=== PATIENT | female | born 1975 | race Native Hawaiian/Other Pacific Islander ===

== ENCOUNTER 2016-05-31 05:34 | Outpatient (CLI) | payer OTHER ==
[2016-05-31 17:50] VITALS: BP 146/88; TEMP 98.4
== END 2016-05-31 20:58 | disposition home or self-care (01) ==
LOC: INF 05:34
DX: E11.40 Type 2 diabetes mellitus with diabetic neuropathy, unspecified (principal)
CPT/HCPCS: 96365; J0712

== ENCOUNTER 2016-06-01 05:34 | Outpatient (CLI) | payer OTHER | END 2016-06-01 19:04 | disposition home or self-care (01) | LOC: INF 05:34 | DX: E11.40 Type 2 diabetes mellitus with diabetic neuropathy, unspecified (principal) | CPT/HCPCS: 96365; 96366; J0712 ==

== ENCOUNTER 2016-06-02 05:23 | Outpatient (CLI) | payer OTHER ==
[2016-06-02 17:40] VITALS: BP 136/80; TEMP 98.4
== END 2016-06-02 22:07 | disposition home or self-care (01) ==
LOC: INF 05:23
DX: E11.40 Type 2 diabetes mellitus with diabetic neuropathy, unspecified (principal)
CPT/HCPCS: 96365; 96366; J0712

== ENCOUNTER 2016-06-03 05:33 | Outpatient (CLI) | payer OTHER | END 2016-06-03 22:56 | disposition home or self-care (01) | LOC: INF 05:33 | DX: E11.40 Type 2 diabetes mellitus with diabetic neuropathy, unspecified (principal) | CPT/HCPCS: 96365; 96366; J0712 ==

== ENCOUNTER 2016-06-05 05:20 | Outpatient (CLI) | payer OTHER | END 2016-06-05 19:09 | disposition home or self-care (01) | LOC: INF 05:20 | DX: E11.40 Type 2 diabetes mellitus with diabetic neuropathy, unspecified (principal) | CPT/HCPCS: 96365; J0712 ==

== ENCOUNTER 2016-06-06 05:30 | Outpatient (CLI) | payer OTHER ==
[2016-06-06 17:45] VITALS: BP 134/74; TEMP 98
== END 2016-06-06 18:32 | disposition home or self-care (01) ==
LOC: INF 05:30
DX: E11.40 Type 2 diabetes mellitus with diabetic neuropathy, unspecified (principal)
CPT/HCPCS: 96365; 96366; J0712

== ENCOUNTER 2018-01-04 12:19 | Outpatient (CLI) | payer OTHER ==
[2018-01-04 12:48] LABS: PLATELET COUNT 394 K/uL (152-353)
[2018-01-04 13:07] LABS: POTASSIUM 4.5 mmol/L (3.6-5.2)
== END 2018-01-04 21:42 | disposition home or self-care (01) ==
LOC: LAB 12:19
PROVIDERS: Podiatrist Foot & Ankle Surgery
DX: L02.611 Cutaneous abscess of right foot (principal); I10 Essential (primary) hypertension; N18.3 Chronic kidney disease, stage 3 (moderate); E11.9 Type 2 diabetes mellitus without complications
CPT/HCPCS: 80053; 85027; 86140

== ENCOUNTER 2018-01-05 17:32 | Outpatient (CLI) | payer OTHER | END 2018-01-05 22:10 | disposition home or self-care (01) | LOC: LAB 17:32 | DX: R60.0 Localized edema (principal) | CPT/HCPCS: 83880 ==

== ENCOUNTER 2018-01-11 11:23 | Outpatient (CLI) | payer OTHER ==
[2018-01-11 12:51] LABS: POTASSIUM 4.6 mmol/L (3.6-5.2)
[2018-01-11 12:59] LABS: PLATELET COUNT 353 K/uL (152-353)
== END 2018-01-11 20:41 | disposition home or self-care (01) ==
LOC: LAB 11:23
PROVIDERS: Podiatrist Foot & Ankle Surgery
DX: L02.611 Cutaneous abscess of right foot (principal); I10 Essential (primary) hypertension; N18.3 Chronic kidney disease, stage 3 (moderate); E11.9 Type 2 diabetes mellitus without complications
CPT/HCPCS: 80053; 85027; 86140

== ENCOUNTER 2018-01-19 12:30 | Outpatient (CLI) | payer OTHER ==
[2018-01-19 12:42] LABS: PLATELET COUNT 407 K/uL (152-353)
[2018-01-19 17:26] LABS: POTASSIUM 4.8 mmol/L (3.6-5.2)
== END 2018-01-19 23:33 | disposition home or self-care (01) ==
LOC: LAB 12:30
PROVIDERS: Podiatrist Foot & Ankle Surgery
DX: L03.115 Cellulitis of right lower limb (principal); B95.61 Methicillin susceptible Staphylococcus aureus infection as the cause of diseases classified elsewhere
CPT/HCPCS: 80053; 85027; 86140

== ENCOUNTER 2020-03-02 13:19 | Emergency (ER) | payer OTHER ==
[~2020-03-02] VITALS: Ht 172.7 cm; Wt 107.0 kg
[2020-03-02 13:28] VITALS: TEMP 98.9
[2020-03-02 14:38] LABS: PARTIAL THROMBOPLASTIN TIME 24.6 SECONDS (24.5-33.6)
[2020-03-02 15:54] VITALS: BP 109/86
== END 2020-03-02 15:54 | disposition home or self-care (01) ==
LOC: ED 13:19
PROVIDERS: Family Medicine
DX: R53.83 Other fatigue (principal); E86.0 Dehydration; E11.621 Type 2 diabetes mellitus with foot ulcer; Z79.4 Long term (current) use of insulin
CPT/HCPCS: 83880; 84484; 85610; 85730; 93005; 99283

== ENCOUNTER 2020-12-11 08:55 | Inpatient (IN) | payer OTHER ==
[~2020-12-11] VITALS: Ht 172.7 cm; Wt 111.6 kg
--- NOTE | 2020-12-11 11:10 | NUR ---
RESPIRATORY AT BEDSIDE
[2020-12-11 11:54] LABS: PLATELET COUNT 221 K/uL (152-353)
[2020-12-11 12:20] LABS: POTASSIUM 3.7 mmol/L (3.6-5.2)
--- NOTE | 2020-12-11 15:15 | NUR ---
PT AT BEDSIDE PERFORMING CPT. RIGHT LUNG @ 94%; LEFT LUNG @ 97%
[2020-12-11 16:42] VITALS: BP 96/63; TEMP 99.2
[2020-12-11 16:55] VITALS: BP 11/68; TEMP 99.6; Ht 172.7 cm; Wt 111.6 kg
[2020-12-11] MEDS ORDERED: CARV6.25 PO (17:59)
[2020-12-11] MEDS ORDERED: ZITHROMAX500 MG PO (18:01)
[2020-12-11] MEDS ORDERED: FAMOTIDINE40 MG PO (18:02)
[2020-12-11] MEDS ORDERED: CRESTOR5 MG PO (18:03)
[2020-12-11] MEDS ORDERED: HYDROCHLOROT12.5 M1 PO (18:04)
[2020-12-11] MEDS ORDERED: CLOP75TA2 PO (18:05)
[2020-12-11] MEDS ORDERED: PANTOPRAZOLE 40MG TA PO (18:05)
[2020-12-11] MEDS ORDERED: GABA300C2 PO (18:06)
[2020-12-11] MEDS ORDERED: [UNRECOGNIZED DRUG - OTHER] PO (18:07)
[2020-12-11] MEDS ORDERED: OZEMPIC2 MG/1.5 M SC (18:09)
[2020-12-11] MEDS ORDERED: LOSARTAN PO (18:15)
[2020-12-11] MEDS ORDERED: HUMALOG (18:17)
[2020-12-11 18:27] VITALS: BP 115/70; TEMP 99
[2020-12-11 20:00] VITALS: BP 110/77; TEMP 98.5
[2020-12-12] VITALS: BP 90/61; TEMP 98.5
--- NOTE | 2020-12-12 00:11 | NUR ---
WHILE GETTING 0000 VITALS, PT'S VITALS WERE FOLLOWS: HR:95, R-17, BP-90/61 AND 02 SAT WAS 53% AND PT. DID NOT HAVE NC ON AND IN NARES. REINFORCING BAR SETTER PUT NC ON AND PT. GOT UP TO 85% ON [address] MCLAUGHLIN AND RECEIVED THE FOLLOWING ORDERS: DEXAMETHASONE 6MG IVP Q8H, PULMICORT FLEXHALER BID, CHANGE TO HIGH FLOW OXYGEN DEVICE AND NOTIFY RT TO DO A ABG. PT'S IS SATTING 97% ON 40% AT 50L HIGH FLOW. WILL CONTINUE TO MONITOR.
--- NOTE | 2020-12-12 00:31 | NUR ---
PLACED PT ON HFNC @ 65% FIO2 AND 40 L/M. SPO2 94%, HR 98. WILL CONT. TO MONITOR PT.
--- NOTE | 2020-12-12 01:12 | NUR ---
NOTIFIED DR. MCLAUGHLIN OF ANXIOUS BEHAVIOR EXHIBITED BY PT. AFTER BEING PUT ON HIGH-FLOW. PHYSICIAN GAVE ORDER FOR ATIVAN 1MG IVP ONE TIME DOSE.
--- NOTE | 2020-12-12 01:26 | NUR ---
CHANGED FIO2 TO 50% AND LITER FLOW @ 40 L/M. SPO2 93%, HR 98
[2020-12-12 04:00] VITALS: BP 140/99; TEMP 98.2
--- NOTE | 2020-12-12 06:22 | NUR ---
INCREASED FIO2 TO 80% FIO2 DUE TO SPO2 DECREASING TO 87%, SPO2 INCREASED TO 93-94% AFTER INCRASE TO 80% FIO2. LITER FLOW 40 L/M
[2020-12-12 07:17] LABS: PLATELET COUNT 215 K/uL (152-353)
[2020-12-12 07:26] LABS: POTASSIUM 3.9 mmol/L (3.6-5.2)
[2020-12-12 08:00] VITALS: BP 157/94; TEMP 98.1
--- NOTE | 2020-12-12 08:33 | NUR ---
RESP AT BS AT THIS TIME. HF DECREASED TO 73% PER TYSON LOUIS RT. PT ALSO AT BS AT THIS TIME PERFPRMING CPT PER MD ORDERS( JAIME AND NICK). PT TOELRATING WNL.
--- NOTE | 2020-12-12 08:40 | NUR ---
PT TOLD RT "I DO NOT LIKE THAT VEST."
--- NOTE | 2020-12-12 10:56 | NUR ---
AVI FROM RESP AT BS TO DECREASE HIGH FLOW DOWN TO 51% PER DR HEARD REQUEST. PT LYING QUIETLY IN BED NO ACUTE DISTRESS NOTED. WILL CON'T TO MONITOR.
--- NOTE | 2020-12-12 10:59 | NUR ---
FIO2 DECREASED TO 50% PER DR MCLAUGHLIN.
--- NOTE | 2020-12-12 11:01 | NUR ---
CALLED DR MCLAUGHLIN'S OFFICE AND SPOKE TO JENNY CONCERNING ANY NOTES FROM DR BARNES R/T WOUND TO RT FOOT. WAS INFORMED THE OFFICE DIDNT HAVE ANY NOTED FROM PATRICIA BARNES ON PT'S CHART BUT JENNY FROM [facility] WILL CALL AND ATTEMPT TO GET WOUND CARE ORDERS. [id number] JENNY AT [facility] CALLED ME AND INFORMED ME SHE CALLED DR BARNES'S OFFCIE AND NURSE TOOK A MESSAGE AND INFORMED HER SOMEONE WOULD RETURN THE CALL AT THE END OF THE BUSSINESS DAY. WILL INFORM DR MCLAUGHLIN AND AWAIT FOR FURTHER ORDERS.
--- NOTE | 2020-12-12 11:20 | NUR ---
JENNY FROM [facility] CALLED AND STATED THAT NURSE FROM DR BARNES'S OFFICE RETUNRED CALL AND STATED THAT SHE WOULD HAVE TO GET ORDERS FROM MD AND WOULD CALL US BACK
--- NOTE | 2020-12-12 11:22 | NUR ---
PT'S CALLED AND REQUESTED TO SPEAK TO NURSE FOR UPDATE. ON PHONE GIVING UPDATE AT THIS TIME,
[2020-12-12 11:30] VITALS: BP 154/98; TEMP 98
--- NOTE | 2020-12-12 12:30 | NUR ---
ORDERS REC'D FROM DR BARNES'S OFFICE FROM JENNY AT DR MCLAUGHLIN'S OFFCIE AT THIS TIME. BENITO IN PURCHASING GIVEN WOUND DRESSING INFORM AND WAITING FURTHER ORDERS AFTER INFORMING
[2020-12-12 16:00] VITALS: BP 175/92; TEMP 97.8
--- NOTE | 2020-12-12 16:00 | NUR ---
DR MCLAUGHLIN CALLED AND ASKED IF WE COULD RESTART HOME BP MEDS AT THIS TIME. PT'S BP MANUALLY 162/90. LEFT MESSAGE AND AWAITING DR MCLAUGHLIN TO CALL BACK WITH FURTHER ORDERS
--- NOTE | 2020-12-12 17:11 | NUR ---
ON PHONE VERY UPSET AT THIS TIME DUE TO PT "NOT RECEIVING HER HOME MEDS". I ATTEMPTED TO EXPLAIN TO HIM THAT I HAD JUST SPOKEN TO DR MCLAUGHLIN CONCERNING PT'S HOME MEDS AND I REC'D ORDERS TO RESTART THE ONES THE MD WANTED TO RESTART. PT'S STATED " THIS PROCESS IS GOING TO KILL SOMEONE RIGHT?" I EXPLAINED TO HIM THAT WE FIRST HAVE TO HAVE AN ORDER FROM THE MD BEFORE WE CAN RESTART HOME MEDS. REMAINED UPSET. [facility] PT AND DR LARSEN
--- NOTE | 2020-12-12 18:20 | NUR ---
DR MCLAUGHLIN HERE IN ROUND MAKING ROUNDS AT THIS TIME IN ROOM WITH PT. PT AWAKE EATING SUPPER. UPON ENTERING ROOM PT NOTED IN UPRIGHT POISITION IN BED EATING SUPPER WITH HF OUT OF NOSE AT THIS TIME. HIGH FLOW PLACED BACK IN PT'S NOSE PER MD. PT STATED SHE COULDNT EAT WITH HF IN HER NOSE AND DR MCLAUGHLIN EXPLAINED SHE HAD TO TRY. HF LET IN PLACE AT THIS TIME. DRESSING TO RT FOOT (PT HAS HAD PARTIAL AMPUTATION .. ALL DIGITS AMPUTATED . PT HAS A SMALL WOUND NOTED TO BOTTOM OF RT FOOT. WOUND MEASURED AND IS FOLLOWS: 1CM X 0.4CM X 0.8CM. WOUND BED NOTED TO BE JOSELYN, NO DRAINAGE NOTED, NO ODOR NOTED. WOUND CLEANED WITH NS AND OPTIFORM AG NON ADHESIVE DRESSING CUT TO FIT CENTER PER MD ORDERS AND WRAPPED WITH LOLY AND TAPED. NON SLIP SOCK PLACED ON PT OVER DRESSING. PT TOELRATED WELL
[2020-12-12 20:00] VITALS: BP 158/86; TEMP 98.3
--- NOTE | 2020-12-12 20:05 | NUR ---
AWAKE SITTING UP ON SIDE OF BED TALKING ON PHONE WITH NO ACUTE DISTRESS NOTED, HIGH FLOW NC IN USE, DENIES ANY NEEDS AT THIS TIME, IV INTACT WITH FLUID ONGOING, TELEMETRY IN USE WITH REGULAR RATE, ENCOURAGED TO CALL NEEDED, RAILS UP, BED IN LOW POSITION, CALL LIGHT IN REACH.
--- NOTE | 2020-12-12 20:25 | NUR ---
KAREN RT, DECREASED HIGH FLOW FIO2 TO 72%, 40LPM. PATIENT DENIES ANY SHORTNESS OF BREATH AT THIS TIME.
--- NOTE | 2020-12-12 20:41 | NUR ---
PT ON 100% FIO2 AT 40LPM ON HFNC. SPO2 AT 99%. PT WEANED TO 70% AT 40LPM. SPO2 NOW AT 98%. WILL CONTINUE TO WEAN TOLERATED BY PT. NO INCREASED WOB OR SOB AT THIS TIME.
--- NOTE | 2020-12-12 22:35 | NUR ---
PT FOUND AWAKE WITH NO ACUTE DISTRESS NOTED, DENIES ANY PROBLEMS OR NEEDS AT THIS TIME, GAVE NIGHTLY MEDICATIONS WITH NO PROBLEMS, IV SITE INTACT WITH NS ONGOING, RESP RATE NONLABORED WITH HIGH FLOW NC IN USE, ENCOURAGED TO CALL NEEDED, RAILS UP, BED IN LOW POSITION, CALL LIGHT IN REACH. REMAINS ON ISOLATION FOR COVID.
--- NOTE | 2020-12-13 00:23 | NUR ---
PT SPO2 IS 99-98% ON 70% FIO2 AT 40LPM HFNC. RT DECREASED FIO2 TO 50%. PT SPO2 HOLDING AT 97-98%. WILL CONTINUE TO MONITOR AND WEAN TOLERATED.
[2020-12-13 00:25] VITALS: BP 144/71; TEMP 98.2
--- NOTE | 2020-12-13 01:00 | NUR ---
RESTING IN POSITION OF COMFORT ON L SIDE WITH EYES CLOSED, NO S/S OF PAIN OR DISTRESS NOTED, RESP RATE NONLABORED, ON HIGH FLOW NC WITH FIO2 OF 50%, IV SITES INTACT WITH FLUID ONGOING AT 125ML/HR, TELEMETRY IN USE, WILL MONITOR CLOSELY, RAILS UP, BED IN LOW POSITION, CALL LIGHT IN REACH.
--- NOTE | 2020-12-13 03:30 | NUR ---
RESTING IN BED WITH EYES CLOSED IN POSITION OF COMFORT, NO S/S OF PAIN OR DISTRESS NOTED, RESP RATE NONLABORED ON HIGH FLOW NC WITH FIO2 OF 50%, BOTH IV SITES INTACT WITH NS INFUSING AT 125ML/HR, TELEMETRY IN USE, WILL MONITOR CLOSELY, RAILS UP, BED IN LOW POSITION, CALL LIGHT IN REACH.
[2020-12-13 04:00] VITALS: BP 177/81; TEMP 97.6
--- NOTE | 2020-12-13 05:20 | NUR ---
AWAKE LAYING IN BED WITH NO S/S OF DISTRESS NOTED, DENIES ANY NEEDS AT THIS TIME, RESP RATE NONLABORED, O2 IN USE VIA HFNC, BOTH IV SITES INTACT AND NS INFUSING AT 125ML/HR, TELEMETRY IN USE, PT STATES SHE HAS NOT SLEPT REALLY ANY TONIGHT. ENCOURAGED TO CALL NEEDED, RAILS UP, BED IN LOW POSITION, CALL LIGHT IN REACH.
[2020-12-13 05:38] LABS: PLATELET COUNT 229 K/uL (152-353)
--- NOTE | 2020-12-13 06:00 | NUR ---
REMAINS ON HIGH FLOW NC WITH FIO2 OF 50% AT 40 LPM, O2 SAT 94%.
[2020-12-13 06:05] LABS: POTASSIUM 3.8 mmol/L (3.6-5.2)
--- NOTE | 2020-12-13 08:51 | NUR ---
CALLED DR MCLAUGHLIN AND REPORTED AM LABS. ALSO INFOMRED THAT PRIOR WHEN RESP IN ROOM AT EXPLAINED TO PT SHE HAD TO SIT UP IN CHAIR TODAY AND THEIMPORTANCE OF MOVING PT GOT UPSET AND STARTED CRYING. PT STATED "I JUST WANT TO SLEEP AND I CANT HERE BECAUSE YOU GUYS KEEP WAKING ME UP AND I CANT REST HERE". EXP,AINED TO PT AGAIN THE IMPORTANCE OF FREQ MOVEMENT AND DISSEASE PROCESS OF THICK MUCOUS WHICH RESULTS FROM COVID. PT STATED TO ME "I SIT UP ON SIDE OF BED TO EAT AND GET UP AND WALK TO BR SO THAT IS ENOUGH OF MOVEMENT". NEW ORDERS RECD TO STOP IVF'S LONG PT IS DRINKING, DC STEROIDS AND DC CXR. IMFORMED THAT RR ATTEMPTING TO WEAN PT OFF HIGH FLOW TO NC. PT PALCED ON NC AT 5L PER ELIZA FROM RESP. DR MCLAUGHLIN DOES NOT WANT PT ANY MORE THAN 3L OF NC. WILL INFORM RESP. WILL MONITOR PT ON NC
[2020-12-13 09:00] VITALS: BP 159/85; TEMP 97.8
--- NOTE | 2020-12-13 09:00 | NUR ---
DR MCLAUGHLIN INFORMED OF PT'S WEIGHT FROM THIS AM AND GAVE HER PT'S ADMISSION WEIGHT WELL
--- NOTE | 2020-12-13 10:22 | NUR ---
REC'D CALL FROM PT'S , SHANTHI ANGELO, UPDATE GIVEN AT THIS TIME. ALL QUESTIONS ANSWERED AT THIS TIME. SHANTHI REPORTS HE IS UP FRONT AND HAS SOME THINGS FOR THE PT THAT SHE CALLED AND REQUESTED IF SOMEONE COULD COME GET THEM. INFORMED HIM SOMEONE WOULD COME UPFRONT AND PICK THE BAG UP. PT'S BAG BROUGHT TO FRONT OF [facility] AT THIS TIME.
--- NOTE | 2020-12-13 10:45 | NUR ---
MJ, RT AT PT'S BEDSIDE. PT NOTED TO BE AWAKE AND COUGHING USING IS. PT IS CURRENTLY ON THE PHONE WITH HER CRYING. INFORMED PT OF MD ORDERS FOR PLACING HER BACK ON HIGH FLOW. PT CON'T TO GET UPSET ABOUT BEING PLACED BACK ON HIGH FLOW. PT EDUATED BY MJ AND MYSELF. PT O2 SATS CHECKED AT THIS TIME WHILE ON 5LPM NC. PT'S O2 SATS NOTED TO BE 94-95%. MJ DECREASED PT TO 3LPM. PT MONITORED FOR 3-5 MINUTES PT MAINTED O2 SATS FROM 90-94% ON 3LPM NC. PT QUESTIONS WHY SHE DOES NOT HEAR ANYONE ELSE GETTING THE CPT. PT EDUCATED THAT HER PHYSICIAN DR. MCLAUGHLIN ORDERED THIS FOR HER TO HELP BREAK UP THE MUCUS IN HER LUNGS. PT O2 SATS REMAIN AT 91%. MJ NOTIFIES DR. MCLAUGHLIN.
--- NOTE | 2020-12-13 11:10 | NUR ---
PER MJ, RT DR. MCLAUGHLIN SAYS PT CAN STAY ON NC 3LPM LONG HER O2 SATS REMAIN 90% OR ABOVE. PT CON'T TO BE UPSET WANTING TO GET A SHOWER. INFORMED PT THAT SINCE SHE IS NOW ON NC WE CAN GET HER IN THE SHOWER WITH A SHOWER CHAIR. WILL, PT HERE AT PT'S BEDSIDE TO PERFORM CPT.
--- NOTE | 2020-12-13 11:14 | NUR ---
called to assess pt. pt was on the phone at this time on 5 L/M NC. I TURNED HER DOWN TO 3 L/M SPO2 MAINTAINED AT 93% NO ACUTE DISTRESS. PHYSICAL THERAPY ENTERED THE ROOM FOR CPT. I SPOKE WITH DR MCLAUGHLIN LONG AT SHE MAINTAINS A SPO2 OF 90% WITH NO DISTRESS SHE SAID SHE IS FINE WITH THE NASAL CANNUAL HOWEVER IF SHE CAN'T SHE WOULD LIKE HER BACK ON THE THE HFNC. BUT PREFERS HER TO STAY ON THE NASAL CANNUAL IF POSSIBLE AND SPO2 CAN BE MAINTAIN AT 90% OR MORE.
--- NOTE | 2020-12-13 11:25 | NUR ---
WILL, PT REPORTS PT COUGHED UP A SIGNIFICANT AMOUNT OF MUC0US, O2 SATS 94-95% AT THIS TIME.
[2020-12-13 12:00] VITALS: BP 171/83; TEMP 97.7
--- NOTE | 2020-12-13 13:40 | NUR ---
PT UP AMBULATING TO BR. PT REPORTS FEELING NAUSEATED. ZOFRAN 4MG IV GIVEN PER MD ORDERS FOR PT'S NAUSEA.
--- NOTE | 2020-12-13 15:00 | NUR ---
ELIZA, RT AT PT'S BEDSIDE. REPORTS PT'S O2 SATS 98% ON 3LPM NC.
--- NOTE | 2020-12-13 15:05 | NUR ---
WILL PT IN AT PT'S BEDSIDE FOR CPT.
--- NOTE | 2020-12-13 15:11 | NUR ---
WILL, PT REPORTS PT REFUING CPT DUE TO BEING NAUSEATED. PT O2 SATS NOTED TO BE 98% ON 3LPM NC AT THIS TIME.
[2020-12-13 16:00] VITALS: BP 160/98; TEMP 97.8
--- NOTE | 2020-12-13 18:31 | NUR ---
i s/w pt this am to assess her dc palns and needs. She stated she lives at home with her and son. She denied any needs at present. I will fu with her after speaking with Dr. West about her DC care.
--- NOTE | 2020-12-13 19:30 | NUR ---
PT'S CALL LIGHT WENT OFF, BLUEBERRY GROWER RESPONDED TO ROOM. PT STATED THAT SHE IS COLD AND NEEDS ANOTHER BLANKET. WHILE IN THE ROOM PT STATES THAT HER IV IN THE RIGHT AC "FEELS LIKE IT IS GOING INTO THE MEAT" OF HER ARM. BLUEBERRY GROWER ASSESSED IV SITE AND NO ABNORMALITY IS NOTED. PT'S AIR TUBING CAME UNATTACHED FROM THE WALL, BLUEBERRY GROWER ASSESSED O2 THAT WAS MAINTAINING AT 96%. AIR LINE WAS REATTACHED AND PT STATED THAT SHE CAN FEEL THE AIR COMING THROUGH THE TUBE. PT SHOWS NO SIGNS OF DISTRESS AT THIS TIME AND DENIES ANY NEEDS.
[2020-12-13 20:00] VITALS: BP 146/72; TEMP 97.8
--- NOTE | 2020-12-13 20:00 | NUR ---
AWAKE WITH NO ACUTE DISTRESS NOTED, DENIES ANY NEEDS AT THIS TIME, TELEMETRY IN USE, O2 AT 3LPM VIA NC WITH SAT OF 96%, RESP RATE NONLABORED, STATES SHE IS FEELING BETTER TODAY, BOTH IV LOCK SITES INTACT, ENCOURAGED TO CALL NEEDED, RAILS UP, BED IN LOW POSITION, CALL LIGHT IN REACH.
--- NOTE | 2020-12-13 22:35 | NUR ---
PT LAYING IN POSITION OF COMFORT IN BED WITH NO S/S OF ACUTE DISTRESS OR PAIN NOTED, DENIES ANY PROBLEMS OR NEEDS AT THIS TIME, RESP RATE NONLABORED, IV SITES INTACT, O2 AT 3LPM VIA NC WITH SAT OF 92-93%, TELEMETRY IN USE, REMAINS ON ISOLATION FOR COVID, WILL MONITOR, ENCOURAGED TO CALL NEEDED PT ACKNOWLEDGES UNDERSTANDING, RAILS UP, BED IN LOW POSITION, CALL LIGHT IN REACH.
[2020-12-14] VITALS: BP 181/79; TEMP 97.8
--- NOTE | 2020-12-14 02:00 | NUR ---
RESTING IN BED IN POSITION OF COMFORT WITH EYES CLOSED, NO S/S OF PAIN OR DISTRESS NOTED, RESP RATE NONLABORED, O2 AT 3LPM VIA NC, IV SITES INTACT, TELEMETRY IN USE WITH REGULAR RATE, WILL MONITOR CLOSELY, RAILS UP, BED IN LOW POSITION, CALL LIGHT IN REACH.
[2020-12-14 04:00] VITALS: BP 185/90; TEMP 97.9
--- NOTE | 2020-12-14 04:14 | NUR ---
PT CALLED STEAMER TENDER LIGHT C/O NAUSEA AND IS GAGGING, GIVEN ZOFRAN 4MG SLOW IVP PRN. DENIES ANY OTHER PROBLEMS, O2 AT 3LPM VIA NC WITH SAT OF 91%, BOTH IV SITES INTACT, TELEMETRY IN USE. B/P SLIGHTLY ELEVATED BUT NOTE PT GAGGING AND ALSO PT GET B/P MEDS THIS MORNING. WILL MONITOR CLOSELY, RAILS UP, BED IN LOW POSITION,CALL LIGHT IN REACH.
--- NOTE | 2020-12-14 04:48 | NUR ---
PT STATES HER NAUSEA HAS DECREASED ALMOST COMPLETELY, NO VOMITING NOTED, STATES SHE IS FEELING BETTER SINCE PRN ZOFRAN. WILL MONITOR CLOSELY.
[2020-12-14 05:43] LABS: PLATELET COUNT 256 K/uL (152-353)
[2020-12-14 06:02] LABS: POTASSIUM 3.4 mmol/L (3.6-5.2)
--- NOTE | 2020-12-14 08:04 | NUR ---
RT ATTEMPTED TO WEAN FIO2 TO 28% AT 2LPM NC. PT SPO2 DROPPED TO 88-89%. RT LEFT PT ON 3LPM NC. WILL ATTEMPT TO WEAN PT AGAIN AT 1000.
--- NOTE | 2020-12-14 09:53 | NUR ---
RT TO ASSESS PT FOR WEANING FIO2. SPO2 STILL 90-91% ON 3LPM NC. PT STATES SHE WAS JUST SICK, VOMITING. NO WEANING AT THIS TIME. WILL CONTINUE TO MONITOR.
[2020-12-14 12:00] VITALS: BP 137/88; TEMP 97.9
[2020-12-14 16:00] VITALS: BP 157/65; TEMP 98.4
[2020-12-14 20:00] VITALS: BP 155/80; TEMP 99
--- NOTE | 2020-12-14 21:35 | NUR ---
PM MEDS GIVEN AT THIS TIME. PT. TOLERATED WELL. PULMICORT AND COMBIVENT INHALERS ALSO GIVEN AT THIS TIME. PT. SATTING 91% ON 5L/M NC AT THIS TIME. NO S/S OF ACUTE DISTRESS NOTED OR EXPRESSED BY PT.
--- NOTE | 2020-12-14 21:40 | NUR ---
EXECUTIVE KITCHEN MANAGER IN PT'S ROOM AT THIS TIME. PT. RESTING WITH SIDE RAILS UP TIMES TWO WITH BED IN LOWEST POSITION WITH CALL LIGHT WITHIN REACH. TELEMETRY, CONTINOUS PULSE OXIMETRY AND 5L/M NC INTACT. NO S/S OF ACUTE DISTRESS NOTED.
--- NOTE | 2020-12-14 21:40 | NUR ---
PM MEDS GIVEN AT THIS TIME ALONG WITH BENADRYL 50MG TO HELP INDUCE SLEEP. PT. TOLERATED WELL. NO PAIN NOTED OR EXPRESSED AT THIS TIME. 3.5 L/M NC INTACT AND PT IS SATTING 95% ON THAT. BLOOD SUGAR WAS 114. NO COVERAGE NEEDED. PT. IN A HIGH-FOWLERS POSITON WITH SIDE RAILS UP TIMES TWO WITH BED IN LOWEST POSITION WITH CALL LIGHT WITHIN REACH. TELEMETRY AND CONTINUOUS PULSE OXIMETRY INTACT AT THIS TIME. WILL MONITOR FOR ANY ACUTE CHANGES AT THIS TIME.
[2020-12-15] VITALS: BP 140/68; TEMP 98.1
[2020-12-15 04:00] VITALS: BP 166/88; TEMP 98.2
[2020-12-15 06:11] LABS: PLATELET COUNT 249 K/uL (152-353)
--- NOTE | 2020-12-15 06:38 | NUR ---
junior underwriter was helping x-ray tech get patient to the wheelchair. patient stated," i cant get any rest. my head is killing me and those bright lights will only make it worse." patient also stated, "come back later."
--- NOTE | 2020-12-15 06:40 | NUR ---
MANINDER TEJADA NOTIFIED ME THAT PT. REFUSED GETTING UP TO DO HER CXR THIS MORNING. WILL PASS ON IN REPORT.
[2020-12-15 06:55] LABS: POTASSIUM 3.4 mmol/L (3.6-5.2)
[2020-12-15 08:15] VITALS: BP 184/85; TEMP 98.1
[2020-12-15 11:55] VITALS: BP 144/82; TEMP 98
[2020-12-15 16:29] VITALS: BP 149/94; TEMP 97.9
--- NOTE | 2020-12-15 17:45 | NUR ---
1430 PROVIDED CHEST XRAY RESULTS TO DR. MCLAUGHLIN. RECEIVED NEW ORDERS TO CONTINUE REMDESIVIR TREATMENT X5 ADDITIONAL DAYS, NOTED AND CARRIED OUT. INFORMED PHYSICIAN PATIENT WAS PRONED AT 1240 WITH SPO2 OF 97-98% ON 2LPM OXYGEN VIA NC UNTIL 1420. ASSISTED PATIENT TO SHOWER AND LINENS CHANGED AT THIS TIME. ONCE OUT OF SHOWER, PATIENT REQUESTING TO RETURN TO BED. EDUCATED PATIENT ON IMPORTANCE OF AMBULATING, USE OF INSENTIVE SPIROMETER, AND INCREASING INTAKE. MANAGER ESTATE OFFERED TO OBTAIN FOOD/DRINK FROM OUTSIDE THE FACILITY, PT REFUSED AT THIS TIME. 1725 PATIENT REMAINS IN CHAIR AT BEDSIDE. PER PATIENT'S REQUEST, PROVIDED PT APPLE AND APPLESAUCE TO PATIENT. ADMINISTERED ZOFRAN 4MG VIA SIVP, PT TOLERATED WELL. PATIENT TOLERATED APPLE SAUCE WITHOUT DIFFICULTY. 1740 PATIENT SPEAKING WITH MOTHER ON PERSONAL CELL PHONE. PATIENT CONTINUES TO RECEIVE OXYGEN VIA NC @ 2LPM WITH SPO2 98%. 1755 ATTEMPTED TO DO DRESSING CHANGE TO RIGHT LOWER EXT, PT ADVISED DRESSING CHANGE IS ONLY TO BE DONE ONCE A WEEK. NOTIFIED OF SAME FOR CLARIFICATION AND PHYSICIAN CONFIRMED DRESSING CHANGE IS TO BE DONE EVERY THREE (3) DAYS.
--- NOTE | 2020-12-15 19:40 | NUR ---
RT AT BEDSIDE DOING CPT WITH SMARTVEST.
--- NOTE | 2020-12-15 19:50 | NUR ---
PT. SATTING 92% ON 3L/ M NC AT THIS TIME. NO S/S OF ACUTE DISTRESS NOTED AT THIS TIME. WILL CONTINUE TO MONITOR.
[2020-12-15 20:00] VITALS: BP 158/85; TEMP 98
--- NOTE | 2020-12-15 21:15 | NUR ---
PM MEDS GIVEN AT THIS TIME. PT. TOLERATED WELL. REGLAN 5 MG GIVEN AT THIS TIME FOR NAUSEA WELL. RT PERFORMED CPT WITH SMART VEST ON PT. PT TOLERATED WELL. PT. SATTING 93-94% AT THIS TIME. NO S/S OF ACUTE DISTRESS NOTED. PT'S BLOOD SUGAR WAS 196. PT. SELF ADMINISTERED INSULIN ALSO AT THIS TIME.
[2020-12-16] VITALS: BP 163/100; TEMP 98.6
--- NOTE | 2020-12-16 02:15 | NUR ---
PT. ASKED FOR A COKE. EDUCATED THAT PLAN REP COULD NOT PROVIDE THIS. PT. STATED "I REALIZE NOW WHY I HAVE A HEADACHE BECAUSE I NORMALLY DRINK CAFFEINE AT THIS TIME." PLAN REP PROVIDED PT. WITH A ALTERNATIVE DIET COKE.
[2020-12-16 04:00] VITALS: TEMP 98.3
[2020-12-16 06:14] LABS: PLATELET COUNT 257 K/uL (152-353)
[2020-12-16 06:42] LABS: POTASSIUM 3.6 mmol/L (3.6-5.2)
--- NOTE | 2020-12-16 07:15 | NUR ---
PARTIAL R FOOT AMPUTATION AREA STILL OPEN TO AIR AT THIS TIME. NEEDED CLARIFICATION ON WHEN LAST DRESSING CHANGE WAS DONE.
[2020-12-16 08:00] VITALS: BP 202/108; TEMP 98.1
--- NOTE | 2020-12-16 09:35 | NUR ---
PATIENT OXYGEN DECREASED TO 2LPM NC VIA NC, PATIENT TOLERATING WELL.
--- NOTE | 2020-12-16 09:50 | NUR ---
DRESSING APPLIED TO RIGHT FOOT PER PHYSICIAN ORDERS. PATIENT TOLERATED WELL, NO REDNESS OR DRAINAGE NOTED TO WOUND.
--- NOTE | 2020-12-16 10:30 | NUR ---
PROVIDED DR. MCLAUGHLIN RESULTS OF CHEST XRAY, RECEIVED VERBAL INSTRUCTIONS TO INCREASE AMBULATION, MOVEMENT AND PRONING TIME WITH PATIENT. ELIZA Cadena RN CHARGE NURSE INFORMED PHYSICIAN PATIENT IS REQUESTING TO REMAIN IN BED DESPITE EDUCATION BY STAFF AND MULTIPLE REQUESTS MADE BY CHARGE NURSE, MOTEL FRONT DESK CLERK AND PCT TO PATIENT TO AMBULATE TO BEDSIDE CHAIR.
--- NOTE | 2020-12-16 11:05 | NUR ---
IV TO LAC WITH 22G INSERTED, SITE FLUSHED WELL WITH NS 10ML AND GOOD BLOOD RETURN NOTED X1 STICK. PATIENT TOLERATED WELL.
[2020-12-16 12:12] VITALS: BP 133/94; TEMP 98
--- NOTE | 2020-12-16 12:15 | NUR ---
PATIENT AMBULATED TO BEDSIDE CHAIR WITHOUT DIFFICULTY. PATIENT HAS PRODUCTIVE COUGH WITH REMOVAL OF COPIOUS AMOUNTS OF THICK TANNED MUCOUS. DIGITAL CONTROLS TECHNICAL OFFICER PROVIDED CPT ON PATIENT. PATIENT DENIES ANY PAIN,NEEDS OR C/O AT THIS TIME. PATIENT USED INCENTIVE SPIROMETER AND PULLED UP TO 1750 WITH SMALL AMOUNT OF DIFFICULTY. PATIENT ENCOURAGED AND EDUCATED ON IMPORTANCE OF CONTINUOUS USE OF I.S., AMBULATING AND MOVEMENT, PT V/O UNDERSTANDING.
--- NOTE | 2020-12-16 12:55 | NUR ---
IV TO LAC INFILTRATED, IV SITE D/C'D WITH TIP IN TACT. PATIENT TOLERATED WELL.
--- NOTE | 2020-12-16 13:25 | NUR ---
SUCCESSFULLY INSERTED IV SITE TO 22G TO RAC X2 STICKS, SITE FLUSHED WELL WITH NS 10ML AND GOOD BLOOD RETURN NOTED. PATIENT INSTRUCTED TO NOTIFY STAFF IF SITE BECOMES PAINFUL, EDEMA OR RED, PT V/O UNDERSTANDING. CALL LIGHT WITHIN REACH AND BEDSIDE TABLE WITH PERSONAL BELONGINGS WITHIN REACH.
--- NOTE | 2020-12-16 14:12 | NUR ---
PATIENT AMBULATED IN HALLWAY, PT RECEIVING OXYGEN VIA NC @ 2LPM, PATIENT DENIES ANY SHORTNESS OF BREATH, WEAKNESS OR DIZZINESS AT THIS TIME.
[2020-12-16 16:05] VITALS: BP 176/91; TEMP 97.8
--- NOTE | 2020-12-16 17:59 | NUR ---
PATIENT CONTINUES TO RECEIVE OXYGEN VIA NC @ 2LPM WITH NO RESPIRATORY DISTRESS NOTED. PATIENT APPEARS TO BE HAPPIER AND WILLING TO PARTICIPATE IN HER CARE.
[2020-12-16 20:00] VITALS: BP 191/98; TEMP 97.9
--- NOTE | 2020-12-16 21:52 | NUR ---
PM ASSESSMENT COMPLETE AT THIS TIME. PM MEDS GIVEN AT THIS TIME. PT. TOLERAETED WELL. DRESSING TO RIGHT FOOT DRY AND INTACT. NO S/S OF ACUTE DISTRESS NOTED OR EXPRESSED BY PT AT THIS TIME. WILL MONITOR FOR ANY ACUTE CHANGES.
[2020-12-17] VITALS: BP 150/71; TEMP 97.9
[2020-12-17 04:00] VITALS: BP 179/93; TEMP 98.1
[2020-12-17 05:42] LABS: PLATELET COUNT 273 K/uL (152-353)
[2020-12-17 06:04] LABS: POTASSIUM 3.2 mmol/L (3.6-5.2)
[2020-12-17 08:00] VITALS: BP 157/77; TEMP 97.9
[2020-12-17 12:00] VITALS: BP 172/68; TEMP 98.1
[2020-12-17 16:00] VITALS: BP 152/78; TEMP 98.1
[2020-12-17 20:00] VITALS: BP 184/95; TEMP 98.2
--- NOTE | 2020-12-17 20:09 | NUR ---
Shift assessment completed. Patient is resting quietly with eyes open. Bed locked in low position. Call vásquez within reach.
--- NOTE | 2020-12-17 22:17 | NUR ---
PT REFUSED TO DO CPT SMART VEST DUE TO PT STATING SHE WAS SLEEPY
[2020-12-18] VITALS: BP 151/89
[2020-12-18 04:00] VITALS: BP 167/86; TEMP 98.3
--- NOTE | 2020-12-18 06:52 | NUR ---
Patient resting throughout the night and did not use her o2 and sats were ranging from 90-95% on RA. No acute distress was noted.
[2020-12-18 08:00] VITALS: BP 156/89; TEMP 98.4
--- NOTE | 2020-12-18 10:54 | NUR ---
PT IN BED TALKING ON CELL PHONE. PT DENIES ANY PAIN/DISCOMFORT. PT STATED "I'M READY TO GO HOME, I'M TIRED OF BEING IN THE HOSPITAL." PT HAD WALKING TEST DONE WITH RESP AND PT SATS <90 WHEN ON O2 VIA NC @ 1LPM. CONSULTED WITH [facility] IN [place] REGARDING PTS NEED FOR O2 AT HOME. ADMINISTERED AM MEDS ORDERED AND PT TOLERATED WELL. REMDESIVIR INFUSING ORDERED BEFORE PT IS DISCHARGED TO GO HOME. PT AMBULATES TO BATHROOM WITH NO ASSISTANCE AND STEADY GAIT. NAD NOTED. PT STATED THAT SHE HAS JUST HAD COVID MEDS REFILLED FOR HOME PRIOR TO HOSPITALIZATION AND DOES NOT NEED A NEW ORDER. PT ANXIOUS ABOUT GOING HOME.
--- NOTE | 2020-12-18 13:19 | NUR ---
PT DISCHARGED TO GO HOME PER DR MCLAUGHLIN. CONSULTED WITH [facility] IN [place] REGARDING PTS O2 FOR HOME. PT WILL BE GOING TO [facility] TO PURCHASE O2. IV SITE TO RIGHT AC DISCONTINUED AND NO SWELLING OR REDNESS NOTED. NAD NOTED. PTS ARRIVED TO TAKE PT HOME. PT DENIES ANY PAIN/DISCOMFORT. NAD NOTED. DISCHARGE INSTRUCTIONS EXPLAINED TO PT AND PT OBTAINED A COPY OF INSTRUCTIONS AND F/U APPOINTMENT WITH DR MCLAUGHLIN. PT VERBALIZED UNDERSTANDING OF INSTRUCTIONS AND THE NEED TO OBTAIN O2 FOR HOME USE. PT TRANSPORTED OUT OF FACILITY AT 1245 VIA WHEELCHAIR.
--- NOTE | 2020-12-18 17:39 | NUR ---
i s/w pt and on speaker phone [phone], they do have the oxygen at home from [facility] [phone] and they will fu with Dr. Simmons with any further needs.
== END 2020-12-18 12:45 | disposition home or self-care (01) | DRG 177 ==
LOC: MED/SURG 08:55
PROVIDERS: ADMIT Family Medicine; ATTEND Family Medicine
DX: U07.1 COVID-19 (principal); J12.82 Pneumonia due to coronavirus disease 2019; I10 Essential (primary) hypertension; F32.9 Major depressive disorder, single episode, unspecified; R45.1 Restlessness and agitation; E66.8 Other obesity; Z68.35 Body mass index [BMI] 35.0-35.9, adult; E11.621 Type 2 diabetes mellitus with foot ulcer; E11.65 Type 2 diabetes mellitus with hyperglycemia; E11.42 Type 2 diabetes mellitus with diabetic polyneuropathy; B07.0 Plantar wart; R09.02 Hypoxemia; D64.89 Other specified anemias; E86.0 Dehydration
CPT/HCPCS: 36600; 80053; 82728; 82805; 83735; 84100; 85027; 85379; 86140; 86900; 86901; 87040; 93005; 94667; 94668; 94760; J0456; J0696; J1100; J1200; J1650; J2060; J2405; J2765; J3475; J3480; P9017

== ENCOUNTER → 2021-01-03 | Outpatient (CLI) | payer OTHER ==
[~2021-01-03] MED LIST: CARV6.25 PO; CLOP75TA2 PO; CRESTOR5 MG PO; FAMOTIDINE40 MG PO; GABA300C2 PO; HUMALOG; HYDROCHLOROT12.5 M1 PO; LOSARTAN PO; OZEMPIC2 MG/1.5 M SC; PANTOPRAZOLE 40MG TA PO; ZITHROMAX500 MG PO; [UNRECOGNIZED DRUG - OTHER] PO
== END ==
LOC: LAB 18:19
PROVIDERS: ATTEND Nurse Practitioner Family
DX: R19.7 Diarrhea, unspecified (principal)
CPT/HCPCS: 83630; 87015; 87045; 87324; 87328; 87329; 87449; 87899

== ENCOUNTER 2021-04-08 12:46 | Outpatient (CLI) | payer OTHER ==
[2021-04-08 13:34] LABS: POTASSIUM 3.9 mmol/L (3.6-5.2)
== END 2021-04-08 19:43 | disposition home or self-care (01) ==
LOC: LABW 12:46
PROVIDERS: ATTEND Nurse Practitioner Family
DX: E11.65 Type 2 diabetes mellitus with hyperglycemia (principal); R14.0 Abdominal distension (gaseous)
CPT/HCPCS: 36415; 36600; 80053; 82150; 82805; 83690; 86677

== ENCOUNTER 2021-08-09 20:58 | Emergency (ER) | payer OTHER | END 2021-08-09 21:11 | disposition home or self-care (01) | LOC: ED 20:58 | DX: Z53.21 Procedure and treatment not carried out due to patient leaving prior to being seen by health care provider (principal) | CPT/HCPCS: 99281 ==

== ENCOUNTER 2021-09-04 13:58 | Outpatient (CLI) | payer OTHER ==
[2021-09-04 14:29] LABS: PLATELET COUNT 371 K/uL (152-353)
== END 2021-09-04 19:19 | disposition home or self-care (01) ==
LOC: LABW 13:58
PROVIDERS: ATTEND Internal Medicine Rheumatology
DX: Z79.899 Other long term (current) drug therapy (principal); M31.4 Aortic arch syndrome [Takayasu]
CPT/HCPCS: 36415; 80053; 85027; 86140

== ENCOUNTER 2021-11-05 09:52 | Outpatient (CLI) | payer OTHER | END 2021-11-05 19:14 | disposition home or self-care (01) | LOC: RAD 09:52 | PROVIDERS: ATTEND Internal Medicine | DX: Z02.71 Encounter for disability determination (principal); G62.9 Polyneuropathy, unspecified; I10 Essential (primary) hypertension; I77.6 Arteritis, unspecified; S98.921A Partial traumatic amputation of right foot, level unspecified, initial encounter; Z89.422 Acquired absence of other left toe(s); E11.319 Type 2 diabetes mellitus with unspecified diabetic retinopathy without macular edema; Y92.9 Unspecified place or not applicable ==